=== PATIENT | female | born 1995 | race Caucasian/White ===

== ENCOUNTER → 2017-10-04 | Outpatient (CLI) | payer MEDICAID | LOC: FIMAGING 12:57 | PROVIDERS: ATTEND Nurse Practitioner Women's Health | DX: N63.21 Unspecified lump in the left breast, upper outer quadrant (principal) ==

== ENCOUNTER → 2018-05-10 | Outpatient (CLI) | payer MEDICAID ==
[~2018-05-10] MED LIST: BUPIVACAINE 0.5% 30 ML SDV ONE; LIDOCAINE 1% 300 MG/30 ML SDV ONE
== END ==
LOC: FIMAGING 07:12
PROVIDERS: ATTEND Nurse Practitioner Women's Health
PROC: 0HBU3ZX Excision of Left Breast, Percutaneous Approach, Diagnostic (ICD-10-PCS; principal; 2018-05-10)
DX: D24.2 Benign neoplasm of left breast (principal)